=== PATIENT | male | born 1990 | race Caucasian/White ===

== ENCOUNTER 2020-08-29 06:03 | Day surgery (SDC) | payer BC, SELFPAY ==
[~2020-08-29] VITALS: Ht 190.5 cm; Wt 88.5 kg
[2020-08-29] MEDS ORDERED: MEPERIDINE HCL/PF 25 MG/ML DISP.SYRIN IVP PRN (08:30)
[2020-08-29] MEDS ORDERED: ONDANSETRON HCL 4 MG/2 ML VIAL IVP PRN (08:30)
[2020-08-29] MEDS ORDERED: HYDROmorphone 1 MG INJ. 1 MG/ML AMPUL IVP PRN ×2 (08:30)
[2020-08-29] MEDS ORDERED: LR 1,000 ML IV SCH (08:30)
[2020-08-29] MEDS ORDERED: MIDAZOLAM HCL 2 MG/2 ML VIAL (VERSED) IVP PRN (08:30)
[2020-08-29] MEDS ORDERED: hydrALAZINE HCL 20 MG/ML VIAL IVP PRN (08:30)
[2020-08-29] MEDS ORDERED: LABETALOL 100 MG/ 20ML VIAL IVP PRN (08:30)
[2020-08-29] MEDS ORDERED: METOCLOPRAMIDE HCL 10 MG/2 ML VIAL IVP PRN (08:30)
[2020-08-29 13:46] VITALS: BP_SYST 128
== END 2020-08-29 13:20 | disposition home or self-care (01) ==
LOC: SMU 06:03 → SDS 06:03
PROVIDERS: ATTEND Otolaryngology
DX: J34.2 Deviated nasal septum (principal); J18.9 Pneumonia, unspecified organism; J32.9 Chronic sinusitis, unspecified; D38.5 Neoplasm of uncertain behavior of other respiratory organs; J34.3 Hypertrophy of nasal turbinates; Z79.899 Other long term (current) drug therapy
CPT/HCPCS: 30140; 30520; 31255; 31256; 31296; 36415; 87070; 87426; 88305; 88311; C1726; J7120; 88304